=== PATIENT | female | born 1950 | race Caucasian/White ===

== ENCOUNTER 2022-05-12 12:49 | Outpatient (CLI) | payer MEDICARE ==
[2022-05-12] VITALS (19 sets, daily range): BP systolic 129–163; BP diastolic 70–103
== END 2022-05-12 23:59 | disposition home or self-care (01) ==
LOC: CARD DIAG 12:49
PROVIDERS: ATTEND Internal Medicine Interventional Cardiology
DX: R55 Syncope and collapse (principal)
CPT/HCPCS: 93660